=== PATIENT | male | born 1960 | race Caucasian/White ===

== ENCOUNTER 2021-01-22 12:12 | Emergency (ER) | payer BC, OTHER ==
[~2021-01-22] VITALS: Ht 170.2 cm; Wt 93.4 kg
[2021-01-22 12:12] VITALS: BP 180/75
== END 2021-01-22 12:55 | disposition home or self-care (01) ==
LOC: ER 12:12
DX: K59.00 Constipation, unspecified (principal); F41.9 Anxiety disorder, unspecified; F32.9 Major depressive disorder, single episode, unspecified; I10 Essential (primary) hypertension; E78.00 Pure hypercholesterolemia, unspecified